=== PATIENT | male | born 1970 | race Hispanic/Latino ===

== ENCOUNTER 2018-10-18 13:10 | Emergency (ER) | payer BC, OTHER ==
[2018-10-18] MEDS ORDERED: VANCOMYCIN 1GM+NS 250ML 250 ML IV ONE (13:59)
[2018-10-18] MEDS ORDERED: SODIUM CHLORIDE 0.9% 1000ML 1,000 ML IV ONE (13:59)
[2018-10-18 14:01] LABS: BASOPHILS % (AUTO) 0.7 % (0.0-5.0); EOSINOPHILS % (AUTO) 1.6 % (0.0-8.0); HEMATOCRIT 43.4 % (42-54); LYMPHOCYTES % (AUTO) 7.6 % (21.0-51.0); MEAN CORPUSCULAR HEMOGLOBIN 30.5 pg (27.0-33.0); MEAN CORPUSCULAR HGB CONC 33.4 g/dL (32.0-36.0); MEAN CORPUSCULAR VOLUME 91.2 fL (79-99); MONOCYTES % (AUTO) 7.4 % (3.0-13.0); NEUTROPHILS % (AUTO) 82.7 % (40.0-77.0); PLATELET COUNT (AUTO) 284 K/uL (130-400); RED BLOOD CELL COUNT(AUTO) 4.76 MIL/uL (4.50-6.20); RED CELL DISTRIBUTION WIDTH 13.5 % (11.0-15.5); WHITE BLOOD COUNT (AUTO) 12.9 K/uL (4.8-10.8)
[2018-10-18 14:16] LABS: ALBUMIN 3.8 g/dL (3.5-5.0); BILIRUBIN,TOTAL 0.5 mg/dL (0.2-1.0)
[2018-10-18] MEDS ORDERED: KETOROLAC TROMETHAMINE 30MG/ML ONE (15:04)
== END 2018-10-18 16:39 | disposition home or self-care (01) ==
LOC: EDH 13:10
DX: L02.413 Cutaneous abscess of right upper limb (principal); Z72.0 Tobacco use; Z98.890 Other specified postprocedural states
CPT/HCPCS: 10060; 36415; 80053; 83605; 85025; 87040; 87070; 87076; 87077; 87186; 96365; 96375; 99283; J1885; J3370; J7030

== ENCOUNTER 2018-10-19 14:28 | Emergency (ER) | payer OTHER ==
[~2018-10-19] VITALS: Ht 177.8 cm; Wt 111.1 kg
[2018-10-19 14:52] LABS: BASOPHILS % (AUTO) 0.5 % (0.0-5.0); EOSINOPHILS % (AUTO) 1.7 % (0.0-8.0); HEMATOCRIT 39.5 % (42-54); LYMPHOCYTES % (AUTO) 9.7 % (21.0-51.0); MEAN CORPUSCULAR VOLUME 91.1 fL (79-99); MONOCYTES % (AUTO) 6.5 % (3.0-13.0); NEUTROPHILS % (AUTO) 81.6 % (40.0-77.0); PLATELET COUNT (AUTO) 260 K/uL (130-400); RED BLOOD CELL COUNT(AUTO) 4.33 MIL/uL (4.50-6.20); RED CELL DISTRIBUTION WIDTH 13.3 % (11.0-15.5); WHITE BLOOD COUNT (AUTO) 8.5 K/uL (4.8-10.8)
[2018-10-19 15:03] LABS: CARBON DIOXIDE 30 mmol/L (21-32); CHLORIDE 101 mmol/L (101-111); GLOMERULAR FILTR. RATE CALC 86 mL/min (>60); GLUCOSE,RANDOM 131 mg/dL (70-105); SODIUM SERUM 138 mmol/L (136-145); UREA NITROGEN, BLOOD 11 mg/dL (7-18)
[2018-10-19 15:06] LABS: INR 1.04 (0.85-1.15); PARTIAL THROMBOPLASTIN TIME 30.1 SEC (26.3-35.5); PROTHROMBIN TIME 10.9 SEC (9.6-11.6)
[2018-10-19 15:10] LABS: BILIRUBIN,URINE Negative (NEGATIVE); COLOR,URINE Dark Yellow (YELLOW); GLUCOSE, URINE (UA) Negative (NEGATIVE); KETONES,URINE 15 mg/dL (NEGATIVE); LEUKOCYTE ESTERASE ,URINE Negative (NEGATIVE); NITRATE,URINE Negative (NEGATIVE); OCCULT BLOOD,URINE Negative (NEGATIVE); PH,URINE 7.5 (5.0-8.0); PROTEIN,URINE Trace (NEGATIVE)
[2018-10-19 15:14] LABS: ALANINE AMINOTRANSFERASE 16 U/L (12-78); ALBUMIN 3.2 g/dL (3.5-5.0); ASPARTATE AMINOTRANSFERASE 13 U/L (10-37); BILIRUBIN,TOTAL 0.6 mg/dL (0.2-1.0); CREATINE KINASE, TOTAL 120 U/L (21-232); MYOGLOBIN 56 ng/mL (10-92); TOTAL PROTEIN, SERUM 7.1 g/dL (6.0-8.3); TROPONIN I < 0.04 ng/mL (0.00-0.06)
[2018-10-19 15:15] LABS: APPEARANCE,URINE CLEAR (CLEAR)
[2018-10-19 15:33] LABS: BACTERIA,URINE Rare /HPF (None Seen); MUCUS,URINE Few LPF (None Seen); RBC,URINE None Seen /HPF (0-1); SQUAMOUS EPITHELIAL CELL,UR 0-2 /HPF (0-2); WBC,URINE 0-1 /HPF (0-1)
[2018-10-19] MEDS ORDERED: VANCOMYCIN 1.75 GM in SODIUM CHLORIDE 0.9% 250 ML IV ONE (16:30)
== END 2018-10-19 20:36 | disposition home or self-care (01) ==
LOC: EDH 14:28
DX: L03.113 Cellulitis of right upper limb (principal); L02.413 Cutaneous abscess of right upper limb; R60.0 Localized edema; Z72.0 Tobacco use; Z98.890 Other specified postprocedural states
CPT/HCPCS: 36415; 71045; 73070; 80053; 81001; 82550; 83605; 83874; 84484; 85025; 85610; 85730; 87040; 87070; 87076; 87077; 87088; 87186; 93005; 93971; 96365; 96366; 99284; J3370; J7030

== ENCOUNTER 2018-10-21 13:46 | Inpatient (IN) | payer OTHER ==
[~2018-10-21] VITALS: Ht 177.8 cm; Wt 111.4 kg
[2018-10-21] MEDS ORDERED: ZOSYN 3.375GM+NS 50ML 50 ML IV ONE ×2 (14:47→20:28)
[2018-10-21 15:00] LABS: BASOPHILS % (AUTO) 1.4 % (0.0-5.0); EOSINOPHILS % (AUTO) 4.8 % (0.0-8.0); HEMATOCRIT 39.1 % (42-54); LYMPHOCYTES % (AUTO) 24.1 % (21.0-51.0); MEAN CORPUSCULAR HEMOGLOBIN 30.6 pg (27.0-33.0); MEAN CORPUSCULAR HGB CONC 33.7 g/dL (32.0-36.0); MEAN CORPUSCULAR VOLUME 90.8 fL (79-99); MONOCYTES % (AUTO) 14.6 % (3.0-13.0); NEUTROPHILS % (AUTO) 55.1 % (40.0-77.0); NUCLEATED RED BLOOD CELLS 0.1 % (0.0-0.19); PLATELET COUNT (AUTO) 301 K/uL (130-400); RED CELL DISTRIBUTION WIDTH 13.3 % (11.0-15.5); WHITE BLOOD COUNT (AUTO) 4.1 K/uL (4.8-10.8)
[2018-10-21 15:14] LABS: POTASSIUM 4.6 mmol/L (3.5-5.1)
[2018-10-21] MEDS ORDERED: SODIUM CHLORIDE 0.9% 1000ML 1,000 ML IV SCH (15:59)
[2018-10-21] MEDS ORDERED: VANCOMYCIN PROTOCOL PER PHARMACY IV PRN (16:00)
[2018-10-21] MEDS ORDERED: MORPHINE SULFATE 2 MG/ML 1ML SYG IV PRN (16:00)
[2018-10-21] MEDS: SODIUM CHLORIDE 0.9% 1000ML 1,000 ML IV SCH (16:00)
[2018-10-21] MEDS ORDERED: HYDRALAZINE HCL 20 MG/ML VIAL IV PRN (16:00)
[2018-10-21] MEDS ORDERED: ONDANSETRON HCL 4 MG/2 ML VIAL IV PRN (16:00)
[2018-10-21] MEDS ORDERED: ACETAMINOPHEN 325 MG TAB PO PRN (16:00)
[2018-10-21] MEDS ORDERED: COMPOUND IV REFRIGERATED 1 EACH IVSOLN MISC PRN (16:00)
[2018-10-21] MEDS ORDERED: IOHEXOL-350 75 ML VIAL IV ONE (16:26)
[2018-10-21] MEDS ORDERED: VANCOMYCIN 2 GM in SODIUM CHLORIDE 0.9% 500ML 500 ML IV SCH (17:00)
[2018-10-21] MEDS ORDERED: FAMOTIDINE/PF 20 MG/2 ML VIAL IV ONE (20:29)
[2018-10-21] MEDS: FAMOTIDINE/PF 20 MG/2 ML VIAL IV SCH (21:00)
[2018-10-21 22:15] VITALS: BP 116/71
[2018-10-21] MEDS ORDERED: IBUP-2070 PO (22:40)
[2018-10-21] MEDS ORDERED: CLIN300C9 PO (22:40)
[2018-10-21] MEDS ORDERED: TYL3 PO (22:40)
[2018-10-21] MEDS ORDERED: SULF1TAB3 PO (22:40)
[2018-10-21] MEDS: ZOSYN 3.375GM+NS 50ML 50 ML IV SCH (23:13)
[2018-10-22] VITALS (7 sets, daily range): BP systolic 110–136; BP diastolic 58–83
[2018-10-22] MEDS: SODIUM CHLORIDE 0.9% 1000ML 1,000 ML IV SCH ×3 (02:00→21:56)
[2018-10-22 04:56] LABS: HEMATOCRIT 35.9 % (42-54); MEAN CORPUSCULAR HEMOGLOBIN 30.7 pg (27.0-33.0); MEAN CORPUSCULAR VOLUME 90.3 fL (79-99); NUCLEATED RED BLOOD CELLS 0.1 % (0.0-0.19); PLATELET COUNT (AUTO) 284 K/uL (130-400); RED BLOOD CELL COUNT(AUTO) 3.97 MIL/uL (4.50-6.20); RED CELL DISTRIBUTION WIDTH 13.7 % (11.0-15.5); WHITE BLOOD COUNT (AUTO) 4.6 K/uL (4.8-10.8)
[2018-10-22 05:20] LABS: CREATININE 1.2 mg/dL (0.5-1.5); POTASSIUM 3.8 mmol/L (3.5-5.1)
[2018-10-22] MEDS: ZOSYN 3.375GM+NS 50ML 50 ML IV SCH ×3 (06:31→21:55)
--- NOTE | 2018-10-22 08:24 | NUR ---
DR. MASCORRO Orthopedic surgeon paged to notify him of consult. Pending for him to call back.
--- NOTE | 2018-10-22 08:28 | NUR ---
FOLLOW UP Per Dr. Simone Bryant does not take care of this type of issues. Dr. Noé Gasca notified. He is aware.
[2018-10-22] MEDS: FAMOTIDINE/PF 20 MG/2 ML VIAL IV SCH ×2 (09:37→21:56)
[2018-10-22] MEDS: VANCOMYCIN 1.75 GM in SODIUM CHLORIDE 0.9% 250 ML IV SCH ×2 (09:47→21:56)
--- NOTE | 2018-10-22 10:15 | NUR ---
GENERAL SURGEON Consult was called and Dr. Srivastava was notified over the phone. He is aware and stated to place patient in his census. Asked if patient was NPO, which he has been kept NPO due to the pending surgical consult and he was made aware patient is NPO. Stated he will see him later.
--- NOTE | 2018-10-22 17:00 | NUR ---
MIGUEL ÁNGEL PT INTERVIEWED [employer] IND, EMPLOYED, S/P ID ON RIGHT ELBOW, NO DC NEEDS EXPECTED, DCP HOME Addendum: 10/24/18 at 1544 by KORI IZAGUIRRE RN Amended: Links added.
[2018-10-23] VITALS: BP 123/64
[2018-10-23 04:00] VITALS: BP 112/63
[2018-10-23] MEDS: ZOSYN 3.375GM+NS 50ML 50 ML IV SCH ×2 (05:54→13:28)
[2018-10-23 08:00] VITALS: BP 119/58
[2018-10-23] MEDS: FAMOTIDINE/PF 20 MG/2 ML VIAL IV SCH (09:04)
[2018-10-23] MEDS: VANCOMYCIN 1.75 GM in SODIUM CHLORIDE 0.9% 250 ML IV SCH (09:05)
[2018-10-23] MEDS: SODIUM CHLORIDE 0.9% 1000ML 1,000 ML IV SCH (09:16)
[2018-10-23 12:00] VITALS: BP 118/72
[2018-10-23 15:30] VITALS: BP 120/71
[2018-10-23] MEDS ORDERED: CLIN300C9 PO (15:39)
--- NOTE | 2018-10-23 16:30 | NUR ---
DRESSING Wound care done twice today. Improvement in amount of drainage and in swelling. No erythema.
== END 2018-10-23 18:28 | disposition home or self-care (01) | DRG 603 ==
LOC: EDH 13:46 → EDHIP 15:20 → 3CH 21:04
PROVIDERS: ADMIT Hospitalist; ATTEND Hospitalist
DX: L03.113 Cellulitis of right upper limb (principal); L02.413 Cutaneous abscess of right upper limb; Z87.891 Personal history of nicotine dependence
CPT/HCPCS: 36415; 73090; 73201; 80048; 83605; 85025; 85027; 87040; G0378; J2543; J3370; J3490; J7030; J7040; Q9967